=== PATIENT | female | born 1980 | race Caucasian/White ===

== ENCOUNTER 2023-07-28 05:38 | Inpatient (IN) ==
[2023-07-28] MEDS: Lactated Ringers 1000 ml BAG 1,000 ML IV ONE ×2 (07:20→15:36)
[2023-07-28 07:39] LABS: ABS Lymphocytes 1.5 10^3/uL (1.0-4.8); ABS Monocytes 0.5 10^3/uL (0.0-0.9); ABS Neutrophils 13.6 10^3/uL (1.5-7.6); ABS Nucleated RBC 0.02 10^3/ul; Hematocrit 39.6 % (35-45); Hemoglobin 13.3 g/dL (11.5-14.3); Lymphocyte % 9.5 %; Mean Corpuscular Hemoglobin 31.4 pg (27-33); Mean Corpuscular Hgb Conc 33.5 g/dL (31-36); Mean Corpuscular Volume 93.7 fL (80-97); Mean Platelet Volume 9.1 fL (7.5-11.2); Nucleated Red Blood Cells % 0.1 %/100WBC (0.0-0.8); Platelet Count 198 10^3/uL (150-450); Red Blood Count 4.23 10^6/uL (3.63-4.92); White Blood Count 15.7 10^3/uL (3.8-11.8)
[2023-07-28] MEDS ORDERED: fentaNYL 100 mcg/2 ml 50 MCG/ML VIAL ONE (07:43)
[2023-07-28] MEDS: OBEPIDURAL (200 ML) 200 ML EPIDURAL SCH (08:20)
[2023-07-28] MEDS: Lidocaine 1.5% EPI 1:200,000 30 ML SDV ONE (08:30)
[2023-07-28] MEDS ORDERED: Sodium Citrate/Citric Acid LIQ 15 ML UDC PO PRN (08:33)
[2023-07-28] MEDS ORDERED: Phenylephrine 40 mcg/mL 10mL (400mcg) SYRINGE IV PUSH PRN ×2 (08:33)
[2023-07-28] MEDS: Lactated Ringers 1000 ml BAG 1,000 ML IV SCH ×2 (09:00→21:05)
[2023-07-28 09:25] LABS: Urine Appearance Clear; Urine Bilirubin Negative (Negative); Urine Blood Negative (Negative); Urine Color Light-Yellow; Urine Glucose Negative (Negative); Urine Ketones Negative (Negative); Urine Nitrite Negative (Negative); Urine Protein Negative (Negative); Urine Specific Gravity 1.018 (1.002-1.030); Urine Urobilinogen Negative (Negative); Urine pH 5.5 (5.0-8.0)
[2023-07-28 10:05] LABS: Urine Benzodiazepine Screen None Detected (None Detect); Urine Cannabinoids Screen None Detected (None Detect); Urine Opiates Screen None Detected (None Detect)
[2023-07-28] MEDS: OBEPIDURAL (200 ML) 200 ML EPIDURAL ONE (15:35)
[2023-07-28] MEDS: Buffered Lidocaine 1% SYRIN 1 ml INTRADERM ONE (15:36)
[2023-07-28] MEDS ORDERED: Glycerin ADULT 2.4 gm SUPP PR PRN (18:06)
[2023-07-28] MEDS ORDERED: Oxytocin 10 UNITS/ML 1 ML VIAL IM PRN (18:06)
[2023-07-28] MEDS ORDERED: Lactated Ringers 1000 ml BAG 1,000 ML IV SCH (19:00)
[2023-07-28] MEDS: Lidocaine 1% VIAL 10 MG/ML 30 ML VIAL INJ PRN (21:03)
[2023-07-28] MEDS: Dibucaine 1% OINT 28.35 GM TUBE PR PRN (23:06)
[2023-07-28] MEDS: Witch Hazel PAD JAR TOPICAL PRN (23:07)
[2023-07-29 07:22] LABS: ABS Lymphocytes 1.9 10^3/uL (1.0-4.8); ABS Monocytes 0.8 10^3/uL (0.0-0.9); ABS Neutrophils 12.4 10^3/uL (1.5-7.6); ABS Nucleated RBC 0.01 10^3/ul; Eosinophil % 0.2 %; Hematocrit 25.2 % (35-45); Hemoglobin 8.7 g/dL (11.5-14.3); Lymphocyte % 12.3 %; Mean Corpuscular Hgb Conc 34.3 g/dL (31-36); Mean Corpuscular Volume 93.2 fL (80-97); Nucleated Red Blood Cells % 0.1 %/100WBC (0.0-0.8); Platelet Count 147 10^3/uL (150-450); White Blood Count 15.1 10^3/uL (3.8-11.8)
[2023-07-29] MEDS: Iron Sucrose 200 MG in NS 0.9% 100 ml BAG 100 ML IVPB ONE (11:18)
[2023-07-29] MEDS: Buffered Lidocaine 1% SYRIN 1 ml INTRADERM ONE (16:09)
[2023-07-30 09:33] VITALS: BP 96/59
== END 2023-07-30 11:30 | disposition home or self-care (01) | DRG 560 ==
LOC: MCHOBOUT 05:38 → MCHOB 06:54
PROVIDERS: ADMIT Midwife; ATTEND Registered Nurse